=== PATIENT | male | born 1990 | race African-American/Black ===

== ENCOUNTER 2018-01-01 03:05 | Emergency (ER) | payer BC, SELFPAY ==
[2018-01-01] MEDS ORDERED: Lidocaine 1% w/Epinephrine 1:100K 30 ML VIAL ONE (03:27)
[2018-01-01 04:08] LABS: #Basophils 0.2 thou/uL (0.0-0.2); #Eosinphils 0.1 thou/uL (0.0-0.7); #Lymphocytes 1.4 thou/uL (1.20-3.40); #Neutrophils 5.4 thou/uL (1.40-6.50); %Basophils 2.5 % (0.0-1.0); %Eosinophils 1.6 % (0.0-10.0); %Lymphocytes 17.2 % (21.0-51.0); %Monocytes 12.2 % (0.0-10.0); %Neutrophils 66.5 % (42.0-75.0); Hemoglobin 13.6 g/dL (14.0-18.0); Mean Corpuscular HGB CONC 31.5 g/dL (32.0-36.0); Mean Corpuscular Hemoglobin 29.3 pg (27.0-31.0); Mean Corpuscular Volume 92.9 fl (80.0-94.0); Mean Platelet Volume 5.4 fL (7.4-10.4); Platelet Count 280 thou/uL (130-400); RBC Distribution Width 11.3 % (11.5-14.5); Red Blood Cell (RBC) Count 4.66 mill/uL (4.70-6.10); White Blood Cell (WBC) Count 8.1 thou/uL (4.8-10.8)
[2018-01-01 04:25] LABS: Acetaminophen Less than 6.0 mcg/mL (10.0-30.0); Alcohol 267 mg/dL (Less than 10); Anion Gap 16 mmol/L (10-20); BUN (Urea Nitrogen) 16 mg/dL (8.9-20.6); Calc. Creatinine Clearance 0 mL/min (70-130); Calcium 8.5 mg/dL (7.8-10.44); Carbon Dioxide 21 mmol/L (22-29); Chloride 102 mmol/L (98-107); Estimated GFR-MDRD 74; Glucose 110 mg/dL (70-105); Potassium 3.2 mmol/L (3.5-5.1); Salicylate Less than 8.0 mg/dL (15.0-30.0); Sodium 136 mmol/L (136-145)
[2018-01-01] MEDS ORDERED: Potassium Chloride 20 MEQ TAB ONE (05:24)
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
== END 2018-01-01 05:25 | disposition home or self-care (01) ==
LOC: NAV ERS 03:05
DX: S01.511A Laceration without foreign body of lip, initial encounter (principal); F10.129 Alcohol abuse with intoxication, unspecified; W22.8XXA Striking against or struck by other objects, initial encounter
CPT/HCPCS: 12011; 12052; 36415; 70450; 70486; 72125; 80048; 80307; 85025; J2001

== ENCOUNTER 2018-01-07 12:52 | Emergency (ER) | payer SELFPAY | END 2018-01-07 13:20 | disposition home or self-care (01) | LOC: NAV ERS 12:52 | DX: Z48.02 Encounter for removal of sutures (principal) ==

== ENCOUNTER 2021-12-12 09:13 | Emergency (ER) | payer SELFPAY | END 2021-12-12 09:37 | disposition home or self-care (01) | LOC: NAV ERS 09:13 | DX: K08.89 Other specified disorders of teeth and supporting structures (principal) | CPT/HCPCS: 99282 ==

== ENCOUNTER 2022-03-11 18:56 | Emergency (ER) | payer OTHER, SELFPAY ==
[2022-03-11] MEDS ORDERED: Acetaminophen 500 MG TAB ONE (19:37)
== END 2022-03-11 21:15 ==
LOC: NAV ERS 18:56
DX: S00.33XA Contusion of nose, initial encounter (principal); S00.83XA Contusion of other part of head, initial encounter; Y04.2XXA Assault by strike against or bumped into by another person, initial encounter
CPT/HCPCS: 70160